=== PATIENT | female | born 1940 | race Caucasian/White ===

== ENCOUNTER 2018-03-16 12:02 | Day surgery (SDC) | payer MEDICARE, OTHER ==
[~2018-03-16] VITALS: Ht 179.1 cm; Wt 97.2 kg
[~2018-03-16 12:02] MED LIST: BUPIVACAINE/PF 0.5% ONE
[2018-03-16 12:34] VITALS: BP 137/84
[2018-03-16] MEDS ORDERED: PLEASE ENTER HEIGHT AND WEIGHT MC SCH (13:00)
[2018-03-16] MEDS ORDERED: HYDR-3241 PO (13:10)
[2018-03-16] MEDS ORDERED: LACTATED RINGERS 1,000 ML IV SCH (14:00)
[2018-03-16] MEDS ORDERED: FENTANYL PF 100 MCG/2ML ONE ×3 (14:18→17:17)
[2018-03-16] MEDS ORDERED: MIDAZOLAM 1 MG/ML, 2ML ONE (14:18)
[2018-03-16] MEDS ORDERED: DEXAMETHASONE 4 MG/ML, 1ML ONE (14:38)
[2018-03-16] MEDS ORDERED: ONDANSETRON 2MG/ML, 2ML IV PRN ×2 (15:00→18:30)
[2018-03-16] MEDS ORDERED: HYDROmorphone 2 MG/ML, 1ML IVPush PRN (15:00)
[2018-03-16] MEDS ORDERED: DIAZEPAM 5 MG/ML, 2ML IVPush PRN (15:00)
[2018-03-16] MEDS ORDERED: PROMETHAZINE 12.5 MG SUPP PR PRN (15:00)
[2018-03-16] MEDS ORDERED: MEPERIDINE/PF 25MG/0.5ML IVPush PRN (15:00)
[2018-03-16] MEDS ORDERED: FENTANYL PF 100 MCG/2ML IV PRN (15:00)
[2018-03-16] MEDS ORDERED: ALBUTEROL SULFATE 2.5 MG/3 ML NPPB PRN (15:00)
[2018-03-16] MEDS ORDERED: HALOPERIDOL 5 MG/ML IV PRN (15:00)
[2018-03-16] MEDS ORDERED: OXYcodone 5 MG/5 ML ORAL.SOL UDC PO PRN ×2 (15:00→18:30)
[2018-03-16] MEDS ORDERED: ONDANSETRON ODT 8 MG PO PRN (15:00)
[2018-03-16] MEDS ORDERED: MIDAZOLAM 1 MG/ML, 2ML IV PRN (15:00)
[2018-03-16] MEDS ORDERED: PROMETHAZINE 25 MG/ML, 1ML IV PRN (15:00)
[2018-03-16] MEDS ORDERED: hydrALAzine 20 MG/ML, 1ML IV PRN (15:00)
[2018-03-16] MEDS ORDERED: MORPHINE SULFATE 4 MG/ML, 1ML IVPush PRN (15:00)
[2018-03-16] MEDS ORDERED: EPHEDRINE 50 MG/ML, 1ML IVPush PRN (15:00)
[2018-03-16] MEDS ORDERED: ACETAMINOPHEN 325 MG TABLET PO PRN (15:00)
[2018-03-16] MEDS ORDERED: PROPOFOL 10 MG/ML, 20ML ONE (15:08)
[2018-03-16] MEDS ORDERED: ONDANSETRON 2MG/ML, 2ML ONE (15:08)
[2018-03-16] MEDS ORDERED: CEFAZOLIN 1,000 MG ONE (15:08)
[2018-03-16] MEDS ORDERED: KETOROLAC 30 MG/1 ML ONE (15:08)
[2018-03-16] MEDS ORDERED: OXYcodone 5 MG/5 ML ORAL.SOL UDC ONE (16:38)
[2018-03-16] MEDS ORDERED: ACETAMINOPHEN 650 MG/20.3 ML UDC ONE (16:38)
[2018-03-16] MEDS: LABETALOL 5MG/ML, 20ML IV PRN ×2 (16:55→17:05)
[2018-03-16] MEDS ORDERED: hydrALAzine 20 MG/ML, 1ML ONE (17:14)
[2018-03-16] MEDS ORDERED: HYDROcodone/APAP 5/325 TABLET PO PRN (18:30)
[2018-03-16] MEDS ORDERED: PROMETHAZINE 25 MG/ML, 1ML IM PRN (18:30)
== END 2018-03-16 19:50 | disposition home or self-care (01) ==
LOC: OUT 12:02 → 4NOR 17:53 → OUT 19:50
PROVIDERS: ATTEND Orthopaedic Surgery
DX: S52.572A Other intraarticular fracture of lower end of left radius, initial encounter for closed fracture (principal); W18.39XA Other fall on same level, initial encounter; Y93.89 Activity, other specified; Y92.89 Other specified places as the place of occurrence of the external cause; Y99.8 Other external cause status; Z98.890 Other specified postprocedural states; Z90.710 Acquired absence of both cervix and uterus; Z88.0 Allergy status to penicillin; Z85.3 Personal history of malignant neoplasm of breast; Z87.39 Personal history of other diseases of the musculoskeletal system and connective tissue
CPT/HCPCS: 25609; 73110; 76000; 93005; C1713; C1776; J0360; J0690; J1100; J1885; J2250; J2405; J2704; J3010; J3490; J7120; G0378